=== PATIENT | female | born 1990 | race Caucasian/White ===

== ENCOUNTER → 2021-04-23 08:48 | Outpatient (CLI) | payer MEDICAID, SELFPAY ==
[2021-04-23 09:11] LABS: Basophils # 0.1 K/mm3 (0-0.2); Basophils % 1.2 % (0.1-2.0); Eosinophils # 0.2 K/mm3 (0.0-0.4); Eosinophils % 1.7 % (0.1-12.0); Hematocrit 40.8 % (37.0-47.0); Hemoglobin 14.2 g/dL (12.2-16.2); Lymphocytes # 2.8 K/mm3 (0.7-4.5); Lymphocytes % 28.5 % (10-50); Mean Corpuscular HGB Conc 34.9 g/dL (31.8-35.4); Mean Corpuscular Hemoglobin 29.3 pg (27.0-31.2); Mean Corpuscular Volume 83.8 fl (81-99); Mean Platelet Volume 7.7 fl (7.4-10.4); Monocytes # 0.5 K/mm3 (0.1-1.0); Monocytes % 4.8 % (1.7-9.3); Neutrophils # 6.2 K/mm3 (1.8-7.8); Neutrophils % 63.8 % (37.0-80.0); Platelet Count 368 K/mm3 (142-424); Red Blood Count 4.87 M/mm3 (4.20-5.40); Red Cell Distribution Width 13.4 % (11.5-17.5); White Blood Count 9.8 K/mm3 (4.8-10.8)
[2021-04-23 09:24] LABS: Hemoglobin A1C 5.6 % (4.0-6.0)
[2021-04-23 09:32] LABS: Alanine Aminotransferase 89 U/L (12-78); Albumin Level 4.5 g/dl (3.5-5.0); Albumin/Globulin Ratio 1.4 (1.1-1.8); Alkaline Phosphatase 98 U/L (38-126); Aspartate Amino Transferase 71 U/L (14-36); Bilirubin,Total 0.9 mg/dl (0.2-1.3); Blood Urea Nitrogen 13 mg/dl (7-17); Carbon Dioxide 25 mmol/L (22.0-30.0); Chloride 106 mmol/L (98-107); Cholesterol 176 mg/dl (140-200); Estimated Glomerular Filt Rate 116 ml/min (>60); GFR (African American) 140 ML/MIN (>60); Globulin 3.2 g/dL (1.3-3.2); Glucose 120 mg/dl (74-100); Total Protein,Serum 7.7 g/dl (6.3-8.2); Triglycerides 191 mg/dl (30-150); VLDL Cholesterol 38 mg/dL (0-40)
[2021-04-23 09:33] LABS: Anion Gap 12.3 mEq/L (5-15); Chol/HDL Ratio 4.4 (1-3.5); HDL Cholesterol 40 mg/dl (40-60); Potassium 4.3 mmoL/L (3.5-5.1); Sodium 139 mmol/L (136-145)
[2021-04-23 09:42] LABS: Direct LDL Cholesterol 101.95 mg/dL (100-129)
[2021-04-23 10:05] LABS: Thyroid Stimulating Hormone 1.91 uIU/mL (0.465-4.68)
[2021-04-23 11:00] LABS: Ferritin 82.3 ng/ml (6.24-137)
[2021-04-24 11:27] LABS: Hep A Ab, IgM Negative (Negative); Hepatitis B Core Antibody IgM Negative (Negative); Hepatitis B Surface Antigen Negative (Negative); Hepatitis C Antibody <0.1 s/co ratio (0.0-0.9)
== END ==
PROVIDERS: Visit Provider Nurse Practitioner Family
DX: I10 Essential (primary) hypertension (principal); R74.8 Abnormal levels of other serum enzymes
CPT/HCPCS: 36415; 80053; 80061; 80074; 82728; 83036; 84443; 85025

== ENCOUNTER → 2021-05-04 09:08 | Outpatient (CLI) | payer MEDICAID, SELFPAY ==
--- NOTE | 2021-05-04 09:15 | US_ITS ---
PROCEDURE: US LIVER CLINICAL INDICATION: ELEVATED LIVER ENZYMES COMPARISON: No exams were available for comparison FINDINGS: PANCREAS: Pancreas is not well delineated due to overlying bowel gas. CT or MRI without and with contrast with pancreatic protocol may provide further evaluation if clinically desired. LIVER: Diffuse increased echogenicity of the liver with poor through transmission of sound consistent with hepatic steatosis. No focal liver lesion demonstrated. There is appropriate direction of blood flow within non dilated portal vein. RIGHT KIDNEY: Unremarkable. Normal size and echogenicity. No hydronephrosis GALLBLADDER: Prior cholecystectomy. Common bile duct is normal at 3 mm. IMPRESSION: Fatty liver. Poor pancreas visualization Prior cholecystectomy Dictated by: Nixon Matthews MD 05/04/2021 11:51 Nixon Matthews MD in [place] 05/04/2021 11:51
== END ==
PROVIDERS: PCP Nurse Practitioner Family; Visit Provider Nurse Practitioner Family
DX: R74.8 Abnormal levels of other serum enzymes (principal)
CPT/HCPCS: 76705

== ENCOUNTER 2021-05-17 17:33 | Emergency (ER) | payer MEDICAID, SELFPAY ==
[2021-05-17 19:20] VITALS: BP 137/97; PULSE 97; RESP 18; TEMP 36.7; O2SAT 100; BMI 36.0
--- NOTE | 2021-05-17 20:01 | HMH.EDUTC ---
[facility] Disposition Clinical Impression: Encounter for laboratory testing for COVID-19 virus Disposition: Home, Self-Care Condition on Discharge: Good Instructions: DI for COVID-19 (Suspected or Confirmed ), Coronavirus Disease 2019, Preventing the Spread of Coronavirus Discharge Instructions Additional Instructions: *Monitor Temp, Over the counter Motrin or Tylenol as directed/as needed Tylenol every 4 hours and Motrin every 6 hours (as long as your family doctor has told you that you can take it) for fever or pain. and straight to ER if unable to lower temp less than 101.0 after medication given Follow up IMMEDIATELY for new or worsening symptoms or no Noticeable improvement over the next 48-72 hours. 911 for difficulty breathing or swallowing You were tested for today for COVID19 your test result should be back in the next 24-48 hours, you may call to the [facility] to see if your test results are back in the next 48 hours [phone] [facility] hours are 9am-9pm You was given a handout with instructions for Self Quarantine and Self isolation for while you wait on test results and what to do if they are positive If you are positive the Health Dept will be contacting you also Make sure to take your Vitamins Vit. C Vit D and Zinc if you can take them Referrals: Ani Wan APRN [Primary Care Provider] - As needed Time of Disposition: 20:03 Medical Decision Making - Sloan Inquiry Pt receiving controlled substance: No Sloan was queried for this patient: No Vital Signs: 05/17/21 19:20 Temperature 98.0 F Temperature Source Oral Pulse Rate [Right Brachial] 97 H Respiratory Rate 18 Blood Pressure [Right Arm] 137/97 H Blood Pressure Mean [Right Arm] 110 Blood Pressure Source [Right Arm] Automatic Cuff Blood Pressure Position [Right Arm] Sitting 02 Sat by Pulse Oximetry 100 Oxygen Delivery Method Room Air Orders (Tests/Meds): ORDERS Category Date Time Status Covid-19 Nasal PCR ([facility]) Routine Lab 05/17/21 19:16 Ordered [facility] HPI - General Stated complaint: covid test Time Seen by Provider: 05/17/21 20:01 Mode of Arrival: Ambulatory Source of Information: Patient Limitations: No Limitations Description of Symptoms (Recalled from Triage Doc. by RN): COVID TEST, DENIES EXPOSURE OR SYMPTOMS HEENT Symptoms (Recalled from RN notes): No Resp Symptoms (Recalled from RN notes): No Skin Symptoms (Recalled from RN notes): No MS Symptoms (Recalled from RN notes): No Functional Status (Recalled from RN notes): WNL - History of Present Illness Provider Complaint: Patient requesting COVID test Denies known exposure or any symptoms States that kids are back in school and she was worried they may catch COVID so she wanted to get tested - Related Data Home Medications Medication Instructions Recorded Confirmed lisinopriL [Lisinopril 10mg Tab] 10 mg PO DAILY 01/20/19 01/20/19 Previous Rx's Medication Instructions Recorded levoFLOXacin [Levaquin 500mg 500 mg PO DAILY #7 tab 01/20/19 tab] Allergies Allergy/AdvReac Type Severity Reaction Status Date / Time No Known Allergies Allergy Verified 01/20/19 19:13 - Worker's Comp Is this a Worker's Comp case?: No [facility] History - Hepatitis A Screen Drug use history?: No High risk sexual behaviors?: No History of sexually transmitted infection?: No Currently employed?: No Childcare worker?: No Do you have indoor plumbing?: Yes Do you have electricity?: Yes Attestation statement:: This patient has been screened for Hepatitis A risk factors. I have reviewed the patient's past medical history: Yes - Social History Alcohol Intake: never Occupational Status: employed ROS Obtained: Yes All systems reviewed & no additional complaints, Yes Systems reviewed as appropriate & no additional complaints - Constitutional Constitutional: Reports system reviewed and no additional complaints, except as docu, Denies body ache, Denies chills, Denies fever
[2021-05-17 20:04] VITALS: BP 137/97; PULSE 97; RESP 18; TEMP 36.7; O2SAT 100
== END 2021-05-17 20:16 | disposition home or self-care (01) ==
PROVIDERS: Emergency Provider Nurse Practitioner; PCP Nurse Practitioner Family
DX: Z20.822 Contact with and (suspected) exposure to COVID-19 (principal)
CPT/HCPCS: 99202; G0463; U0003

== ENCOUNTER → 2021-08-15 09:17 | Outpatient (CLI) | payer MEDICAID, SELFPAY ==
[2021-08-15 09:57] LABS: Basophils # 0.1 K/mm3 (0-0.2); Basophils % 1.2 % (0.1-2.0); Eosinophils # 0.2 K/mm3 (0.0-0.4); Eosinophils % 1.5 % (0.1-12.0); Hematocrit 43.6 % (37.0-47.0); Hemoglobin 15.2 g/dL (12.2-16.2); Lymphocytes # 3.1 K/mm3 (0.7-4.5); Lymphocytes % 32.4 % (10-50); Mean Corpuscular Hemoglobin 29.4 pg (27.0-31.2); Mean Platelet Volume 7.9 fl (7.4-10.4); Monocytes # 0.5 K/mm3 (0.1-1.0); Monocytes % 4.9 % (1.7-9.3); Neutrophils # 5.7 K/mm3 (1.8-7.8); Neutrophils % 59.9 % (37.0-80.0); Platelet Count 400 K/mm3 (142-424); Red Blood Count 5.19 M/mm3 (4.20-5.40); Red Cell Distribution Width 13.1 % (11.5-17.5); White Blood Count 9.5 K/mm3 (4.8-10.8)
[2021-08-15 10:13] LABS: INR 0.94 (0.9-1.1); Prothrombin Time 10.7 seconds (10.1-12.5)
[2021-08-15 10:40] LABS: Chloride 104 mmol/L (98-107); Potassium 4.1 mmoL/L (3.5-5.1); Sodium 138 mmol/L (136-145)
[2021-08-15 10:42] LABS: Alanine Aminotransferase 82 U/L (12-78); Aspartate Amino Transferase 90 U/L (14-36); Blood Urea Nitrogen 10 mg/dl (7-17); Estimated Glomerular Filt Rate 116 ml/min (>60); GFR (African American) 140 ML/MIN (>60)
[2021-08-15 10:43] LABS: Albumin Level 4.5 g/dl (3.5-5.0); Albumin/Globulin Ratio 1.4 (1.1-1.8); Alkaline Phosphatase 117 U/L (38-126); Anion Gap 12.1 mEq/L (5-15); Bilirubin,Total 1.4 mg/dl (0.2-1.3); Calcium 9.5 mg/dl (8.4-10.2); Carbon Dioxide 26 mmol/L (22.0-30.0); Globulin 3.3 g/dL (1.3-3.2); Glucose 137 mg/dl (74-100); Iron 98 ug/dL (37-170); Total Protein,Serum 7.8 g/dl (6.3-8.2)
[2021-08-15 10:53] LABS: Total Iron Binding Capacity 427 ug/dL (265-497)
[2021-08-15 11:18] LABS: Ferritin 97.1 ng/ml (6.24-137)
[2021-08-16 10:12] LABS: Ceruloplasmin 30.5 mg/dL (19.0-39.0); Immunoglobulin A, Qn 638 mg/dL (87-352); Immunoglobulin G, Qn 1114 mg/dL (586-1602); Immunoglobulin M, Qn 124 mg/dL (26-217)
[2021-08-16 13:32] LABS: Angiotensin Converting Enzyme <15 U/L (14-82)
[2021-08-16 14:38] LABS: Actin (Smooth Muscle) Antibody 29 Units (0-19); Liver-Kidney Microsomal Ab 1.3 Units (0.0-20.0); Mitochondrial (M2) Antibody <20.0 Units (0.0-20.0)
[2021-08-16 15:27] LABS: Deamidated Gliadin Abs, IgA 9 units (0-19); Deamidated Gliadin Abs, IgG 2 units (0-19); Tissue Transglutaminase IgA Ab <2 U/mL (0-3); Tissue Transglutaminase IgG Ab <2 U/mL (0-5)
[2021-08-16 16:16] LABS: Endomysial IgA Antibody Negative (Negative)
[2021-08-17 06:11] LABS: Reticulin IgA Antibody Negative titer (Neg:<1:2.5)
[2021-08-17 17:22] LABS: Antinuclear Antibodies, IFA Positive (.)
[2021-08-18 02:16] LABS: ALT (SGPT) P5P 90 IU/L (0-40); AST (SGOT) P5P 88 IU/L (0-40); Alpha 2-Macroglobulins, Qn 268 mg/dL (110-276); Apolipoprotein A-1 131 mg/dL (116-209); Bilirubin, Total 1.1 mg/dL (0.0-1.2); Cholesterol, Total 189 mg/dL (100-199); Fibrosis Score 0.47 (0.00-0.21); Fibrosis Stage F1-F2 (.); GGT 166 IU/L (0-60); Glucose 136 mg/dL (65-99); Haptoglobin 175 mg/dL (33-278); NASH Score 0.75 (0.25); Steatosis Score 0.85 (0.00-0.30); Triglycerides 216 mg/dL (0-149)
[2021-08-18 13:11] LABS: Alpha-1-Antitrypsin 159 mg/dL (100-188)
== END ==
PROVIDERS: Visit Provider Nurse Practitioner Family
DX: K76.0 Fatty (change of) liver, not elsewhere classified (principal); R94.5 Abnormal results of liver function studies; R19.7 Diarrhea, unspecified; R15.2 Fecal urgency; R14.3 Flatulence
CPT/HCPCS: 36415; 80053; 81256; 82103; 82104; 82164; 82390; 82728; 82784; 83516; 83540; 83550; 85025; 85610; 86038; 86255; 86256; 86376

== ENCOUNTER 2022-08-04 10:19 | Emergency (ER) | payer MEDICAID, SELFPAY ==
[2022-08-04 10:40] VITALS: BP 149/87; PULSE 111; RESP 17; TEMP 37.1; O2SAT 98; BMI 32.8
--- NOTE | 2022-08-04 11:06 | EXP.UTC ---
Discharge Plan Disposition Patient Disposition: Home, Self-Care Condition: Good Prescriptions Prescriptions: New prednisone [prednisone] 20 mg tablet 20 mg PO BID 5 Days Qty: 10 0RF doxycycline monohydrate 100 mg tablet 100 mg PO BID 10 Days Qty: 20 0RF albuterol sulfate [Ventolin HFA] 90 mcg/actuation HFA aerosol inhaler 2 puff inhalation QIDP PRN (Reason: Wheezing) 30 Days Qty: 1 0RF promethazine-DM 6.25-15 mg/5 mL Syrup 5 ml PO Q6H PRN (Reason: Cough) Qty: 120 0RF No Action lisinopril 10 MG tablet 10 mg PO DAILY levofloxacin 500 MG tablet 500 mg PO DAILY Qty: 7 0RF Referrals Follow up/Referrals: Ani Wan APRN [Primary Care Provider] - See instructions Clinical Impressions Clinical Impression: Bronchitis Instructions Patient Instructions: DI for Acute Bronchitis Discharge ED Provider: Kay Velasquez [facility] [place] General Stated complaint: Cough, LT ear pain, Chest congestion Mode of Arrival: Ambulatory Source of Information: Patient Limitations: No Limitations Time Seen by Provider: 08/04/22 11:07 Description of Symptoms (Recalled from Triage Doc. by RN): pt comes in with c/o left ear pain, cough, pain with coughing. symptoms began sunday HEENT Symptoms (Recalled from RN notes): Yes Resp Symptoms (Recalled from RN notes): Yes Skin Symptoms (Recalled from RN notes): No MS Symptoms (Recalled from RN notes): No Functional Status (Recalled from RN notes): n/a History of Present Illness Provider Complaint: 4 day history left ear pain, cough, sore throat. OTC meds haven't helped. Chest soreness with coughing. Cough non productive. Can't catch her breath. Onset (ago): day(s) (4) Relieving factors: none Exacerbating factors: none Associated symptoms: denies other symptoms Treatments prior to arrival: none Related Data Home Medications Medication Instructions Recorded Confirmed lisinopril 10 mg tablet 10 mg PO DAILY Hypertension 01/20/19 01/20/19 Previous Rx's Medication Instructions Recorded levofloxacin 500 mg tablet 500 mg PO DAILY #7 tabs 01/20/19 albuterol sulfate 90 mcg/actuation 2 puff inhalation QIDP PRN 08/04/22 aerosol inhaler (Ventolin HFA) Wheezing 30 days #1 ea doxycycline monohydrate 100 mg 100 mg PO BID 10 days #20 tabs 08/04/22 tablet prednisone 20 mg tablet 20 mg PO BID 5 days #10 tabs 08/04/22 promethazine-DM 6.25 mg-15 mg/5 mL 5 ml PO Q6H PRN Cough #120 mL 08/04/22 oral syrup Allergies Allergy/AdvReac Type Severity Reaction Status Date / Time No Known Allergies Allergy Verified 08/04/22 10:42 Worker's Comp Is this a Worker's Comp case?: No PFSH PFSH Social History Smoking Status: Never smoker alcohol intake: never current occupational status: employed Travel in the last 8 weeks: None ROS Obtained: Yes All systems reviewed & no additional complaints except as documented Constitutional Constitutional: Reports body ache, Reports chills and Denies fever(s) ENT Ears, Nose, Mouth, and Throat: Reports sore throat Respiratory Respiratory: Reports chest congestion, Reports cough and Reports pain with cough Physical Exam General General appearance: alert and in no apparent distress Head Head exam: atraumatic, normocephalic and normal inspection Eye Eye exam: Present normal appearance, PERRL and EOMI ENT ENT exam: Present normal exam, normal oropharynx, mucous membranes moist, TM's normal bilaterally and normal external ear exam Neck Neck exam: Present normal inspection, full ROM and trachea midline; Absent meningismus or lymphadenopathy Chest Chest inspection: Present normal inspection and symmetric chest wall rise; Absent tenderness Respiratory Respiratory exam: Present wheezes; Absent respiratory distress Cardiovascular Cardiovascular exam: Present regular rate and normal rhythm; Absent JVD Abdominal Exam Abdominal exam: Present soft and normal bowel sounds; Absent distention, tenderness or guarding E
[2022-08-04 11:29] VITALS: BP 149/87; PULSE 111; RESP 17; TEMP 37.1
== END 2022-08-04 11:30 | disposition home or self-care (01) ==
PROVIDERS: Emergency Provider Physician Assistant; PCP Nurse Practitioner Family
DX: J40 Bronchitis, not specified as acute or chronic (principal)
CPT/HCPCS: 99212; G0463

== ENCOUNTER → 2023-02-22 10:50 | Outpatient (CLI) | payer MEDICAID, SELFPAY ==
[2023-02-22 11:12] LABS: Basophils # 0.1 K/mm3 (0-0.2); Basophils % 0.8 % (0.1-2.0); Eosinophils # 0.2 K/mm3 (0.0-0.4); Eosinophils % 1.6 % (0.1-12.0); Hematocrit 42.6 % (37.0-47.0); Hemoglobin 14.4 g/dL (12.2-16.2); Lymphocytes # 3.3 K/mm3 (0.7-4.5); Lymphocytes % 33.6 % (10-50); Mean Corpuscular HGB Conc 33.7 g/dL (31.8-35.4); Mean Corpuscular Hemoglobin 29.4 pg (27.0-31.2); Mean Corpuscular Volume 87.4 fl (81-99); Mean Platelet Volume 7.6 fl (7.4-10.4); Monocytes # 0.5 K/mm3 (0.1-1.0); Monocytes % 4.6 % (1.7-9.3); Neutrophils # 5.8 K/mm3 (1.8-7.8); Neutrophils % 59.4 % (37.0-80.0); Platelet Count 348 K/mm3 (142-424); Red Blood Count 4.88 M/mm3 (4.20-5.40); White Blood Count 9.7 K/mm3 (4.8-10.8)
[2023-02-22 11:27] LABS: Chloride 98 mmol/L (98-107); Potassium 3.8 mmoL/L (3.5-5.1); Sodium 139 mmol/L (136-145)
[2023-02-22 11:30] LABS: Alanine Aminotransferase 88 U/L (12-78); Albumin Level 4.3 g/dl (3.5-5.0); Albumin/Globulin Ratio 1.3 (1.1-1.8); Alkaline Phosphatase 116 U/L (38-126); Anion Gap 14.8 mEq/L (5-15); Aspartate Amino Transferase 103 U/L (14-36); Bilirubin,Total 1.5 mg/dl (0.2-1.3); Blood Urea Nitrogen 13 mg/dl (7-17); Calcium 9.5 mg/dl (8.4-10.2); Carbon Dioxide 30 mmol/L (22.0-30.0); Estimated Glomerular Filt Rate 114 ml/min (>60); GFR (African American) 138 ML/MIN (>60); Globulin 3.2 g/dL (1.3-3.2); Glucose 127 mg/dl (74-100); Total Protein,Serum 7.5 g/dl (6.3-8.2)
[2023-02-22 11:50] LABS: INR 0.95 (0.9-1.1); Prothrombin Time 10.3 seconds (10.1-12.5)
== END ==
PROVIDERS: PCP Nurse Practitioner Family; Visit Provider Physician Assistant
DX: K75.81 Nonalcoholic steatohepatitis (NASH) (principal)
CPT/HCPCS: 36415; 80053; 85025; 85610

== ENCOUNTER → 2023-03-01 07:41 | Outpatient (CLI) | payer MEDICAID, SELFPAY ==
--- NOTE | 2023-03-01 07:47 | US_ITS ---
FINAL REPORT CLINICAL HISTORY: NONALCOHOLIC STEATOHEPATITIS FINDINGS: RIGHT UPPER QUADRANT ULTRASOUND Sonographic images of the right upper quadrant were obtained. Exam is limited secondary to body habitus. The pancreas is partially obscured. There is fatty infiltration of the liver. The gallbladder is absent. The common duct measures 5 mm. Limited images of the right kidney are normal. IMPRESSION: Fatty liver. Absent gallbladder. Reviewed, Interpreted and Dictated by Donnie Lauren MD Transcribed by Candice Barreto Authenticated and [facility]
== END ==
PROVIDERS: PCP Nurse Practitioner Family; Visit Provider Physician Assistant
DX: K75.81 Nonalcoholic steatohepatitis (NASH) (principal)
CPT/HCPCS: 76705

== ENCOUNTER 2025-04-08 07:45 | Outpatient (CLI) | payer MEDICAID, SELFPAY ==
--- OUTSIDE RECORDS SUMMARY | 2025-03-04 22:33 | XMS_ITS | Continuity of Care Document ---
Author Organization [facility] Phone Care Team Providers Care Instructor Dancing Name Role Phone SEAN TEJEDA Primary Care CASE, SELENA Rodriguez Unavailable CASE, SELENA Rodriguez Admitting CASE, SELENA Rodriguez Surgeon CASE, SELENA Rodriguez Primary Attending ALLERGIES AND ADVERSE REACTIONS ALLERGIES AND ADVERSE REACTIONS Code System Allergy Substance Adverse Reaction Date Reaction (Severity) Comment Status Reported By Updated By No Known Allergies [id number] on December 27, 2023 12:47:30 PM [place] FAMILY HISTORY RELATION: Father Status: Cause of : Liver cell carcinoma Age at : Unknown SNOMED-CT Diagnosis Age At Onset Information not available RELATION: Mother Status: Cause of : Myocardial infarction Age at : Unknown SNOMED-CT Diagnosis Age At Onset Information not available RESULTS Patient: FILIBERTO Gomez Date of : December 04 3 LABORATORY RESULTS ORDER 300: URINE T EST (LOINC: 2105-11) ORDER DATE: March 02, 2025 7:24:00 PM UTC Specimen Source: URINE Specimen Type: Urine specime n PERFORMING LAB: [address] [id number] Result Comment: Final Result Date: March 02, 2025 7:41:00 PM UTC (TECH: JNJ) LOINC TEST FLAG RESULT REFERENCE RANGE UPDA ROBYN BY 2105-11 Choriogonadotropin ( test) [Presence] in Urine N NEGATIVE NEGATIVE March 7:41:00 PM UTC (TECH: JNJ) 13894-2 Reagent Lot number [id number] J 2024 7:41:00 PM UTC (TECH: JNJ) 51841-1 Choriogonadotropin [Units/volume] in Serum or Plasma N 11-20-25 March 02, 2025 7:41:00 PM UTC (TECH: JNJ) 98502-0 Internal control result N OK POSITI VE March 02, 2025 7:41:00 PM UTC (TECH: LISAJ) LABORATORY NARRATIVE RESULTS Information is not available RADIOLOGY RESULTS Information is not available PATHOLOGY NARRATIVE RESULTS ORDER 400: PATHOLOGY SPECIME N (INC: 70977-6) ORDER DATE: March 02, 2025 7:52:00 PM UTC Specimen Source: PATH Specimen Type: Refer to path ology laboratory PERFORMING LAB: [address] [id number] Final Result Date: March 04 6:18:00 PM UTC TEST: PATHOLOGY SPECIMEN MICROBIOLOGY RESULTS No Micro Labs/Results Exist for Patient BLOOD ADMIN RESULTS Information is not available MEDICATIONS HOME MEDICATIONS Status RXNORM [facility] Medication Dose Route Frequency Dates Comments Reported By Updated By Active 184677 72049 90655 4 albuterol (VENTOLIN) HFA 108 (90 BASE) MCG/ACT 2.0 PUF INHALA TION [id number] Last Dose: [id number] on February 16, 2025 12:23:11 PM [place] Active 758546 60313 40259 1 Benazepril-h ydroCHLOROth iazide Oral Tablet 20-12.5 MG 1.0 TAB ORAL DAILY Last Dose: February 23, 2025 1:00:0 0 PM UTC [id number] on March 02, 2025 7:20:41 PM UTC Active 331045 53260 67706 8 cholestyrami ne (QUESTRAN) 4.0 GM ORAL BID Last Dose: February 23, 2025 1:00:0 0 PM UTC [id number] on March 02, 2025 7:21:30 PM UTC Active 7945403 88549 48790 6 colestipol (COLESTID) 2.0 GM ORAL BID Last Dose: February 23, 2025 1:00:0 0 PM UTC [id number] on March 02, 2025 7:21:48 PM UTC Active 019227 17231 44964 0 Dicyclomine HCl Oral Tablet 20 MG 20.0 MG ORAL DAILY Last Dose: February 23, 2025 1:00:0 0 PM UTC [id number] on March 02, 2025 7:22:03 PM [facility] Active 647190 78475 61455 1 Escitalopram Oxalate Oral Tablet 20 MG 20.0 MG ORAL DAILY Last Dose: February 23, 2025 1:00:0 0 PM [facility] [id number] on March 02, 2025 7:22:16 PM [facility] Active 281481 51515 31533 1 hydrOXYzine (ATARAX) 25.0 MG ORAL TIDPRN Last Dose: February 23, 2025 1:00:0 0 PM [facility] [id number] on March 02, 2025 7:22:27 PM [facility] Active 206374 63423 58351 0 Levocetirizi ne Dihydrochlor radha Oral Tablet 5 MG 1.0 TAB ORAL DAILY Last Dose: February 23, 2025 1:00:0 0 PM [facility] [id number] on March 02, 2025 7:22:40 PM [facility] Active 714470 63934 34331 0 Omeprazole Oral Capsule Delayed Release 40 MG 40.0 MG ORAL BID Last Dose: February 23, 2025 1:00:0 0 PM [facility] [id number] on March 02, 2025 7:22:52 PM [facility] Active 375569 15807 17115 0 buPROPion HCl ER (XL) Oral Tablet Extended Release 24 Hour 300 MG 1.0 TAB ORAL DAILY Last Dose: February 23, 2025 1:00:0 0 PM [facility] [id number] on March 02, 2025 7:27:07 PM [facility] DISCHARGE MEDICATIONS Status RXNORM [facility] Medication Dose Route Frequency Dates Comments Physician Updated By No Discharge Medication Info rmation Available [facility]PATIENT MEDICATIONS [facility] Medication Dose Route Frequency Rat e Quantity Dates Comments Physician Updated By Trem[place]ne inued [id number] 2167 8011 704 LACTATED RINGERS SOLN 1000. 0 ML INTRAV ENOUS ONE TIME ADMINISTRA TION (UNSCHEDUL ED) 25.0 ML/HR Start: February 16, 2025 12:38: 00 PM [facility] End: March 03, 2025 2:16:0 0 AM [facility] KAELA Gomez [id number] on March 03, 2025 4:25:00 AM [facility] T[place]ne inued [id number] 5963 8004 904 sodium chloride 0.9% SOLN 1000. 0 ML INTRAV ENOUS ONE TIME ADMINISTRA TION (UNSCHEDUL ED) 25.0 ML/HR Start: February 16, 2025 12:38: 00 PM UTC End: March 03, 2025 2:16:0 0 AM UTC KAELA Gomez [id number] on March 03, 2025 4:25:00 AM UTC Discont inued 101762 9548 8011 704 LACTATED RINGERS SOLN 1000. 0 ML IV CONTIN UOUS ONE TIME ONLY (SCHEDULED DOSE) Start: March 02, 2025 12:55: 00 PM UTC End: March 02, 2025 12:55: 00 PM UT CASE SELENA Rodriguez INTERFAC ED on March 02, 2025 4:00:00 AM UT Discont inued 1398428 9110 5034 542 PROPOFOL 500 MG/50ML EMUL 500.0 MG INTRAV ENOUS ONE TIME ONLY (SCHEDULED DOSE) 20.833 MG/HR Start: March 02, 2025 2:30:0 0 PM UTC End: March 03, 2025 2:16:0 0 AM [place] CASE SELENA Rodriguez [id number] on March 03, 2025 2:35:00 PM UTC Discont inued 4759781 9751 3020 202 LIDOCAINE HCL 2 % SOLN 2.0 ML ONE TIME ONLY (SCHEDULED DOSE) 0.083 ML/HR Start: March 02, 2025 2:30:0 0 PM UTC End: March 03, 2025 2:16:0 0 AM UTC CASE SELENA Rodriguez [id number] on March 03, 2025 2:35:00 PM UT SOCIAL HISTORY SOCIAL HISTORY SNOMED-CT Social History Element Description Effective Dates Offered Cessation Comment UpdatedBy [id number] Current Tobacco smoking status Former Smoker [id number] on February 16, 2025 12:24:24 PM UT SOCIAL HISTORY - Gender Sex: Female SOCIAL HISTORY - Status : status i nformation is not available Intention in Next Year: intention information is not available SOCIAL HISTORY - Sexual Behavior Sexual Orientation Gender Identity SNOMED-CT Description SNO MED -CT Description Activity Level No of Partners Partner Type UpdatedBy Information is not available VITAL SIGNS PATIENT VITAL SIGNS This section displays the mo st recent value for each vital sign as of March 05, 2025 2:33:38 AM [place] Loinc Code Vital Sign Activity Date Result Updated By 8302-2 Body height March 02, 2025 7:23:13 PM UT 170.18 cm (67.0 in) [id number] on March 02, 2025 7:23:13 PM [facility] 55788-8 Body mass index (BMI) [Ratio] March 02, 2025 7:23:13 PM UT 34.042 kg/m2 [id number] on March 02, 2025 7:23:13 PM UT 3140-1 Body Surface Area Derived From Formula March 02, 2025 7:23:13 PM UT 2.0949 m2 [id number] on March 02, 2025 7:23:13 PM [facility] 40855-0 Body weight Measured March 02 7:23:13 PM UT 98.6 kg (217.0 lb) [id number] on March 02, 2025 7:23:13 PM [facility] PEDIATRIC GROWTH CHART - VITAL SIGNS This section displays Head C ircumference Percentile, Weight for Length Percentile and BMI Percentile Loinc Code Pediatric Measure Age (Months) Result Updat ed By No Pediatric Growth Chart Pe rcentile Information Available. PROCEDURES PATIENT PROCEDURES CODE SYSTEM DESCRIPTION STATUS PERFORMED DATE UPD ATED BY [id number] SNOMED-CT Esophagogastroduodenoscopy completed March 02, 2025 4:00:00 AM [facility] [id number] on March 02, 2025 7:48:36 PM [facility] PROCEDURE NOTE Procedure Note information i s not available. HEALTH CONCERNS Problems Concern Status Health Concern problem infor mation not available. Smoking Status Status Years Used Consumed packs p er day Health Concern smoking histo ry information not available. Family History Concern Status Health Concern family histor y information not available. ENCOUNTERS ENCOUNTER INFORMATION Reason for Visit EGD WITH DAS Admission March 02, 2025 6:16:[address] [id number] Discharge March 03, 2025 2:16:00 AM [facility] DISC HARGED TO HOME OR SELF CARE ENCOUNTER DIAGNOSES Notes information is not shamir ilable. Code System Diagnosis Onset Date Diagnosis information is not available. ABSTRACT DIAGNOSES Code System Diagnosis Updated By R12 ICD10 HEART[place]URN [id number] on March 04, 2025 12:46:56 PM UT K20.80 ICD10 OTHER ESOPHAGITIS WITHOUT BL EEDING [id number] on March 04, 2025 12:46:56 PM [facility] I10 ICD10 ESSENTIAL (PRIMARY) HYPERTEN JOHNSON [id number] on March 04, 2025 12:46:56 PM UT J45.909 ICD10 UNSPECIFIED ASTHMA, UNCOMPLI CATED [id number] on March 04, 2025 12:46:56 PM UTC K21.9 ICD10 GASTRO-ESOPHAGEA L REFLUX DISEASE WITHOUT ESOPHAGITIS [id number] on March 04, 2025 12:46:56 PM UTC K50.90 ICD10 CROHN'S DISEASE, UNSPECIFIED, WITHOUT COMPLICATIONS [id number] on March 04, 2025 12:46:56 PM UTC F32.A ICD10 DEPRESSION, UNSPECIFIED [id number] on March 04, 2025 12:46:56 PM UT Z90.49 ICD10 ACQUIRED ABSENCE OF OTHER SPECIFIED PARTS OF DIGESTIVE TRACT [id number] on March 04, 2025 12:46:56 PM UT Z79.899 ICD10 OTHER RESIDENTIAL (CURRENT) DR GRICEL THERAPY [id number] on March 04, 2025 12:46:56 PM [facility] CARE TEAM Care Instructor Dancing Role SEAN TEJEDA Primary Care SELENA SUH Referring SELENA CASE Admitting SELENA CASE Surgeon SELENA CASE Primary Attending CARE TEAM CARE outside sales inspector Role on Team Status Start Date End Date Update d By CASE SELENA Rodriguez SWEETIE Surgeon normal March 02 6:16:00 PM [facility] March 03, 2025 2:16:00 AM [facility] [id number] on March 04, 2025 12:47:03 PM [facility] CASE SELENA PITT Referring normal March 02 6:18:51 PM [facility] March 03, 2025 2:16:00 AM [facility] [id number] on March 04, 2025 12:47:03 PM [facility] normal February 09, 2025 12:00:47 PM [facility] March 03, 2025 2:16:00 AM UT [id number] on March 04, 2025 12:47:03 PM [facility] CASE SELENA Rodriguez SWEETIE Attending normal February 09 12:00:47 PM [facility] March 03, 2025 2:16:00 AM [facility] [id number] on March 04, 2025 12:47:03 PM [facility] CASE SELENA PITT Admitting normal February 09 12:00:47 PM [facility] March 03, 2025 2:16:00 AM [facility] [id number] on March 04, 2025 12:47:03 PM [facility]
--- NOTE | 2025-04-08 | FL_ITS ---
FINAL REPORT CLINICAL HISTORY: GERD W/ ESOPHAGITIS W/O HEMMORRHAGE 0.29 min DAP 557.61 FINDINGS: ESOPHAGRAM HISTORY: Abdominal pain, nausea. PROCEDURE: The patient ingested barium. Effervescent crystals were also administered. Spot and overhead films were obtained. FINDINGS: The esophagus is normal. There is a small sliding type hiatal hernia. There is mild gastroesophageal reflux. Peristalsis is normal. IMPRESSION: Small sliding-type hiatal hernia and mild gastroesophageal reflux. Fluoroscopy time: 29 seconds Fluoro dose: 557.61 DAP in uGym2 Reviewed, Interpreted and Dictated by Donnie Lauren MD Transcribed by RUTHY Kenny Authenticated and [facility]
--- OUTSIDE RECORDS SUMMARY | 2025-04-08 07:48 | XMS_ITS | Data Portability ---
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 Lang. She also has a history of mild heartburn and frequent post-prandial diarrhea. 1) FIGUEROA: LFTs have improved with weight loss over the past year. Most recently with mildly elevated ALT at 44, normal AST. I have counseled continued weight loss efforts with regular diet and exercise. -Repeat labs at follow-up. -Avoid NSAIDs and alcohol. -Do not take over 2 g of acetaminophen daily. 2) Heartburn: Continue Famotidine as needed 3) Chronic diarrhea: Not improved with colestipol, dicyclomine, or Xifaxan previously. -Will obtain EGD and colonoscopy for further evaluation. -Stool studies previously ordered, but not performed by the patient -Will have her trial cholestyramine for a period and monitor her symptoms. 4) Prophylaxis: Final dose of the hepatitis A vaccine was administered in the office today. 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 Lang. She also has a history of mild heartburn and frequent post-prandial diarrhea. 1) FIGUEROA: LFTs have improved with weight loss over the past year. Most recently with mildly elevated ALT at 44, normal AST. I have counseled continued weight loss efforts with regular diet and exercise. -Repeat labs today for continued monitoring. -Avoid NSAIDs and alcohol. -Do not take over 2 g of acetaminophen daily. 2) Heartburn: Recent EGD with finding of grade B reflux esophagitis. She was started on Omeprazole 40 mg p.o. BID x8 weeks. She will resume use of famotidine PRN after that course is complete. I have recommended she contact the office after stopping PPI if she has recurrence of symptoms. 3) Chronic diarrhea: Previously not improved on cholesyramine, colestipol, dicyclomine, or Xifaxan previously. Colonoscopy schowed some cobblestoning in the colon, but with normal terminal ileal biopsy and random colon biopsies. Stool studies previously ordered, but not performed by the patient -With recent improvements, will continue to monitor for now. 4) Prophylaxis: She previously completed the hepatitis Vaccination series here in our office. Labs indicate immunity to hepatitis B. 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 Lang. She also has chronic refractory GERD and frequent post-prandial diarrhea. 1) FIGUEROA: LFTs previously improved with weight loss. She has gained 18 lbs since her last OV last year. Recommend regular diet and exercise for weight loss. -Repeat labs today for continued monitoring, risk stratification. -Limit alcohol 2) GERD: EGD last year with finding of grade B reflux esophagitis. She was started on Omeprazole 40 mg p.o. BID and famotidine PRN. She has intermittent breakthrough heartburn despite these. -Stop Omeprazole. Start Voquezna 10 mg p.o. daily. She may continue famotidine PRN. 3) Chronic diarrhea: Previously not improved on cholesyramine, colestipol, dicyclomine, or Xifaxan previously. Colonoscopy showed some cobblestoning in the colon, but with normal terminal ileal biopsy and random colon biopsies. Stool studies previously ordered, but not performed by the patient -Repeat stool study ordered today by Stool IDX swab: H. pylori stool Ag, Fecal calprotectin, fecal fat, O & P, Stool PCR. -Start loperamide 1-2 tablets daily in the morning. She may take an additional tablet as the day progressive if needed. She was instructed to observe for constipation. 4) Prophylaxis: She previously completed the hepatitis Vaccination series here in our office. Labs indicated immunity to hepatitis B. 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 Lang. She also has chronic refractory GERD and frequent post-prandial diarrhea. 1) Refractory GERD with overt regurgitation/Lik cindy LPR: Primary complaint: Jl has been approved, she will contact the mail order pharmacy to arrange delivery. EGD last year showed grade B reflux esophagitis. -She can continue Pepcid as needed for breakthrough symptoms. -We discussed recommendation for EGD with Alexandra and she would like to proceed. She may be a good candidate for anti-reflux surgery. 2) MASH: LFTs have fluctuated down with prior weight loss, and more recently have worsened with weight gain. ELF test is moderate risk. -I have again counseled regular diet and vigorous physical activity. Recommend at least 150 minutes of exercise per week. -Limit alcohol 3) Chronic diarrhea: Previously not improved on cholestyramine, colestipol, dicyclomine, or Xifaxan previously. Colonoscopy showed some cobblestoning in the colon, but with normal terminal ileal biopsy and random colon biopsies. Stool studies were unremarkabel and included H. pylori stool Ag, Fecal calprotectin, fecal fat, O & P, Stool PCR, and fecal elastase. -Continue loperamide as needed. She will continue to observe for constipation. 4) Prophylaxis: She previously completed the hepatitis Vaccination series here in our office. Labs indicated immunity to hepatitis B. f/u after EGD with Alexandra. Consider pursuing anti-reflux procedures if indicated. 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 Lang. She also has chronic refractory GERD/LPR and frequent post-prandial diarrhea. 1) Refractory GERD with overt regurgitation/Lik cindy LPR: Primary complaint: Jl has been approved, but she has been unable to obtain it from the specialty pharmacy. Rx was sent to her regular pharmacy. Additional samples provided in the office today. EGD last year showed grade B reflux esophagitis. This was repeated recently and again showed grade B reflux esophagitis. Alexandra study showed an elevated DeMeester score with increased acid exposure time and longest reflux. -She appears go be a good candidate for anti-reflux surgery and she is interested in proceeding with this. We will obtain a barium esophagram. No hiatal hernia was appreciated on EGD. Will refer to general surgery to discuss possible partial fundoplication. 2) MASH: LFTs have fluctuated down with prior weight loss, and more recently have worsened with weight gain. ELF test was recently moderate risk. She has had a 14 lb unintentional weight loss related to her upper GI symptoms. -I have again counseled regular diet and vigorous physical activity. Recommend at least 150 minutes of exercise per week. -Limit alcohol -Will plan for repeat lab monitoring in 3 months. 3) Chronic diarrhea: Previously not improved on cholestyramine, colestipol, dicyclomine, or Xifaxan previously. Colonoscopy showed some cobblestoning in the colon, but with normal terminal ileal biopsy and random colon biopsies. Stool studies were unremarkable and included H. pylori stool Ag, Fecal calprotectin, fecal fat, O & P, Stool PCR, and fecal elastase. -Stable on loperamide as needed currently. 4) Prophylaxis: She previously completed the hepatitis A vaccination series here in our office. Labs indicated immunity to hepatitis B. f/u 3 months [email or web address] Not available 04/01/2025 17:01:11 Plan of Treatment Reminders Order Date Submit Date Provider Last Modified By Organization Details Last Modified Time Details Appointments Establish ed Visit 15 min 2024 10:45A M Buck Rivera PA-C Not available Not available Not available Lab inflammat ion panel, serum or plasma 2024 025 [email or web address], [address], [address], [place], [address], 01/21/2025 14:10:57 inflammat ory bowel disease Ab panel, serum 2024 025 [email or web address] [facility], [address], [address], [place], [address], 01/21/2025 14:10:57 CMP, serum or plasma 2024 025 [email or web address] [facility], [address], [address], [place], [address], 01/21/2025 14:10:57 CBC 2024 025 [email or web address] [facility], [address], [address], [place], [address], 01/21/2025 14:10:57 PT/INR 2024 025 [email or web address] [facility], [address], [address], [place], [address], 01/21/2025 14:10:57 liver fibrosis score, calculate d by ELF, serum or plasma 2024 025 [email or web address] [facility], [address], [address], [place], [address], 01/21/2025 14:10:57 CMP, serum or plasma 2023 024 [facility], [address], [address], [place], [address], 01/22/2024 16:12:39 CBC 2023 024 [facility], [address], [address], [place], [address], 01/22/2024 16:12:40 PT/INR 2023 024 [facility], [address], [address], [place], [address], 01/22/2024 16:12:41 Referral general surgeon referral - Evaluatio n for possible partial fundoplic ation. No hiatal hernia was seen on EGD. See Buck's note from 04/01/25. 2024 025 ATHKYLE Gorman MD, [address], [address], [place], [address], 04/01/2025 17:00:36 Procedures None recorded. Surgeries None recorded. Imaging RF, esophagra m 2024 025 [facility] ([facility]), [address], [place], [address], 04/08/2025 04:13:45 Medication Orders Voquezna 20 mg tablet 2024 025 [email or web address] [facility], [facility] [address], [place], [id number], 04/01/2025 16:52:55 famotidin e 20 mg tablet 2024 025 [facility], [facility] [address], [place], [id number], 02/18/2025 11:08:01 loperamid e 2 mg tablet 2024 025 [facility], [address] [place] [address] [address], [place], [id number], 01/15/2025 14:23:39 Voquezna 10 mg tablet 2024 025 [facility] [address], [place], [address], 01/14/2025 10:00:58 famotidin e 20 mg tablet 2023 024 [facility], [facility] [address], [place], [id number], 01/21/2024 12:21:13 cholestyr amine (with sugar) 4 gram oral powder 2023 024 [email or web address] [facility], [address] [address] [place], [id number], 12/14/2023 14:32:09 Patient TargetsNo targets recorded. Patient InstructionsNo instructions recorded. Reason for Referral General Surgeon Referral for Gastro-esophageal reflux disease with esophagitis Evaluation for possible partial fundoplication. No hiatal hernia was seen on EGD. See Buck's note from 04/01/25. Referring Physician: Buck Rivera, Gastroenterology, Encounter Date: 04/01/2025 Results Created Date Observation Date Name Description Value Unit Range Abnormal Flag Note LastModifiedBy Organization Detail LastModifiedTime 01/21/20 24 01/22/2024 COMP. METAB OLIC PANEL (14) glucose 122 mg/dL 70-99 above high normal Not Available [facility] ([facility]) [address] [place], [address], 01/22/2024 16:12:39 01/21/20 24 01/22/2024 COMP. METAB OLIC PANEL (14) BUN 7 mg/dL 6-20 Not Available [facility] ([facility]) [address] [place], [address], 01/22/2024 16:12:39 01/21/20 24 01/22/2024 COMP. METAB OLIC PANEL (14) creatinine 0.64 mg/dL 0.57-1 .00 Not Available [facility] ([facility]) [address] [place], [address], 01/22/2024 16:12:39 01/21/20 24 01/22/2024 COMP. METAB OLIC PANEL (14) eGFR 118 mL/mi n/1.7 3 >59 Not Available [facility] ([facility]) [address] [place], [address], 01/22/2024 16:12:39 01/21/20 24 01/22/2024 COMP. METAB OLIC PANEL (14) BUN/creatini ne ratio 11 9-23 Not Available [facility] ([facility]) [address] [facility], [place], [address], 01/22/2024 16:12:39 01/21/20 24 01/22/2024 COMP. METAB OLIC PANEL (14) sodium 140 mmol/ L 134-14 4 Not Available [facility] ([facility]) [address] [place], [address], 01/22/2024 16:12:39 01/21/20 24 01/22/2024 COMP. METAB OLIC PANEL (14) potassium 4.1 mmol/ L 3.5-5. 2 Not Available [facility] ([facility]) [address] [facility], [place], [address], 01/22/2024 16:12:39 01/21/20 24 01/22/2024 COMP. METAB OLIC PANEL (14) chloride 102 mmol/ L 96-106 Not Available [facility] ([facility]) [address] [place], [address], 01/22/2024 16:12:39 01/21/20 24 01/22/2024 COMP. METAB OLIC PANEL (14) carbon dioxide, total 21 mmol/ L 20-29 Not Available [facility] ([facility]) [address] [place], [address], 01/22/2024 16:12:39 01/21/20 24 01/22/2024 COMP. METAB OLIC PANEL (14) calcium 10.1 mg/dL 8.7-10 .2 Not Available [facility] ([facility]) [address] [place], [address], 01/22/2024 16:12:39 01/21/20 24 01/22/2024 COMP. METAB OLIC PANEL (14) protein, total 8.0 g/dL 6.0-8. 5 Not Available [facility] ([facility]) [address] [place], [address], 01/22/2024 16:12:39 01/21/20 24 01/22/2024 COMP. METAB OLIC PANEL (14) albumin 4.7 g/dL 3.9-4. 9 Not Available [facility] ([facility]) [address] [place], [address], 01/22/2024 16:12:39 01/21/20 24 01/22/2024 COMP. METAB OLIC PANEL (14) globulin, total 3.3 g/dL 1.5-4. 5 Not Available [facility] ([facility]) [address] [place], [address], 01/22/2024 16:12:39 01/21/20 24 01/22/2024 COMP. METAB OLIC PANEL (14) A/G ratio 1.4 1.2-2. 2 Not Available [facility] ([facility]) [address] [place], [address], 01/22/2024 16:12:39 01/21/20 24 01/22/2024 COMP. METAB OLIC PANEL (14) bilirubin, total 0.7 mg/dL 0.0-1. 2 Not Available [facility] ([facility]) [address] [place], [address], 01/22/2024 16:12:39 01/21/20 24 01/22/2024 COMP. METAB OLIC PANEL (14) alkaline phosphatase 143 IU/L 44-121 above high normal Not Available [facility] ([facility]) [address] [place], [address], 01/22/2024 16:12:39 01/21/20 24 01/22/2024 COMP. METAB OLIC PANEL (14) AST (SGOT) 31 IU/L 0-40 Not Available [facility] ([facility]) [address] [facility], [place], [address], 01/22/2024 16:12:39 01/21/20 24 01/22/2024 COMP. METAB OLIC PANEL (14) ALT (SGPT) 44 IU/L 0-32 above high normal Not Available [facility] ([facility]) [address] [facility], [place], [address], 01/22/2024 16:12:39 01/21/20 24 01/22/2024 CBC, PLATE LET, NO DIFFE RENTI AL WBC 9.1 x10e3 /uL 3.4-10 .8 Not Available [facility] ([facility]) [address] [facility], [place], [address], 01/22/2024 16:12:40 01/21/20 24 01/22/2024 CBC, PLATE LET, NO DIFFE RENTI AL RBC 5.15 x10e6 /uL 3.77-5 .28 Not Available [facility] ([facility]) [address] [facility], [place], [address], 01/22/2024 16:12:40 01/21/20 24 01/22/2024 CBC, PLATE LET, NO DIFFE RENTI AL hemoglobin 15.3 g/dL 11.1-1 5.9 Not Available [facility] ([facility]) [address] [facility], [place], [address], 01/22/2024 16:12:40 01/21/20 24 01/22/2024 CBC, PLATE LET, NO DIFFE RENTI AL hematocrit 46.1 % 34.0-4 6.6 Not Available [facility] ([facility]) [address] [facility], [place], [address], 01/22/2024 16:12:40 01/21/20 24 01/22/2024 CBC, PLATE LET, NO DIFFE RENTI AL MCV 90 fL 79-97 Not Available [facility] ([facility]) [address] [facility], [place], [address], 01/22/2024 16:12:40 01/21/20 24 01/22/2024 CBC, PLATE LET, NO DIFFE RENTI AL MCH 29.7 pg 26.6-3 3.0 Not Available [facility] ([facility]) [address] [facility], [place], [address], 01/22/2024 16:12:40 01/21/20 24 01/22/2024 CBC, PLATE LET, NO DIFFE RENTI AL MCHC 33.2 g/dL 31.5-3 5.7 Not Available [facility] ([facility]) [address] [facility], [place], [address], 01/22/2024 16:12:40 01/21/20 24 01/22/2024 CBC, PLATE LET, NO DIFFE RENTI AL RDW 12.5 % 11.7-1 5.4 Not Available [facility] ([facility]) [address] [facility], [place], [address], 01/22/2024 16:12:40 01/21/20 24 01/22/2024 CBC, PLATE LET, NO DIFFE RENTI AL platelets 342 x10e3 /uL 150-45 0 Not Available [facility] ([facility]) [address] [facility], [place], [address], 01/22/2024 16:12:40 01/21/20 24 01/22/2024 CBC, PLATE LET, NO DIFFE RENTI AL NRBC FELLER SEAM OPERATOR Not Available [facility] ([facility]) [address] [facility], [place], [address], 01/22/2024 16:12:40 01/21/20 24 01/22/2024 PROTH ROMBI N TIME (PT), SERIA L INR 1.0 0.9-1. 2 Refer ence inter arpita is for non-a ntico agula lydia patie nts. Sugge sted INR thera peuti c range for Vitam in K antag onist thera py: Stand emily Dose (mode rate inten sity thera peuti c range ): 2.0 - 3.0 Highe r inten sity thera peuti c range 2.5 - 3.5 Not Available [facility] ([facility]) [address] [place], [address], 01/22/2024 16:12:41 01/21/20 24 01/22/2024 PROTH ROMBI N TIME (PT), SERIA L prothrombin time 10.2 sec 9.1-12 .0 Not Available [facility] ([facility]) [address] [place], [address], 01/22/2024 16:12:41 01/21/20 24 01/22/2024 PROTH ROMBI N TIME (PT), SERIA L pdf . Not Available [facility] ([facility]) [address] [place], [address], 01/22/2024 16:12:41 01/15/20 25 01/15/2025 COMP. METAB OLIC PANEL (14) glucose 259 mg/dL 70-99 above high normal Not Available [facility] ([facility]) [address] [place], [address], 01/22/2025 16:28:02 01/15/20 25 01/15/2025 COMP. METAB OLIC PANEL (14) BUN 14 mg/dL 6-20 normal Not Available [facility] ([facility]) [address] [place], [address], 01/22/2025 16:28:02 01/15/20 25 01/15/2025 COMP. METAB OLIC PANEL (14) creatinine 0.78 mg/dL 0.57-1 .00 normal Not Available [facility] ([facility]) [address] [place], [address], 01/22/2025 16:28:02 01/15/20 25 01/15/2025 COMP. METAB OLIC PANEL (14) eGFR 101 mL/mi n/1.7 3 >59 normal Not Available [facility] ([facility]) [address] [facility], [place], [address], 01/22/2025 16:28:02 01/15/20 25 01/15/2025 COMP. METAB OLIC PANEL (14) BUN/creatini ne ratio 18 9-23 normal Not Available [facility] ([facility]) [address] [facility], [place], [address], 01/22/2025 16:28:02 01/15/20 25 01/15/2025 COMP. METAB OLIC PANEL (14) sodium 137 mmol/ L 134-14 4 normal Not Available [facility] ([facility]) [address] [place], [address], 01/22/2025 16:28:02 01/15/20 25 01/15/2025 COMP. METAB OLIC PANEL (14) potassium 4.4 mmol/ L 3.5-5. 2 normal Not Available [facility] ([facility]) [address] [place], [address], 01/22/2025 16:28:02 01/15/20 25 01/15/2025 COMP. METAB OLIC PANEL (14) chloride 102 mmol/ L 96-106 normal Not Available [facility] ([facility]) [address] [place], [address], 01/22/2025 16:28:02 01/15/20 25 01/15/2025 COMP. METAB OLIC PANEL (14) carbon dioxide, total 22 mmol/ L 20-29 normal Not Available [facility] ([facility]) [address] [place], [address], 01/22/2025 16:28:02 01/15/20 25 01/15/2025 COMP. METAB OLIC PANEL (14) calcium 9.6 mg/dL 8.7-10 .2 normal Not Available [facility] ([facility]) [address] [place], [address], 01/22/2025 16:28:02 01/15/20 25 01/15/2025 COMP. METAB OLIC PANEL (14) protein, total 7.5 g/dL 6.0-8. 5 normal Not Available [facility] ([facility]) [address] [place], [address], 01/22/2025 16:28:02 01/15/20 25 01/15/2025 COMP. METAB OLIC PANEL (14) albumin 4.3 g/dL 3.9-4. 9 normal Not Available [facility] ([facility]) [address] [place], [address], 01/22/2025 16:28:02 01/15/20 25 01/15/2025 COMP. METAB OLIC PANEL (14) globulin, total 3.2 g/dL 1.5-4. 5 Not Available [facility] ([facility]) [address] [place], [address], 01/22/2025 16:28:02 01/15/20 25 01/15/2025 COMP. METAB OLIC PANEL (14) bilirubin, total 0.5 mg/dL 0.0-1. 2 normal Not Available [facility] ([facility]) [address] [place], [address], 01/22/2025 16:28:02 01/15/20 25 01/15/2025 COMP. METAB OLIC PANEL (14) alkaline phosphatase 152 IU/L 44-121 above high normal Not Available [facility] ([facility]) [address] [place], [address], 01/22/2025 16:28:02 01/15/20 25 01/15/2025 COMP. METAB OLIC PANEL (14) AST (SGOT) 81 IU/L 0-40 above high normal Not Available [facility] ([facility]) [address] [place], [address], 01/22/2025 16:28:02 01/15/20 25 01/15/2025 COMP. METAB OLIC PANEL (14) ALT (SGPT) 84 IU/L 0-32 above high normal Not Available [facility] ([facility]) [address] [facility], [place], [address], 01/22/2025 16:28:02 01/15/20 25 01/15/2025 CBC, PLATE LET, NO DIFFE RENTI AL WBC 10.0 x10e3 /uL 3.4-10 .8 normal Not Available [facility] ([facility]) [address] [facility], [place], [address], 01/22/2025 16:28:03 01/15/20 25 01/15/2025 CBC, PLATE LET, NO DIFFE RENTI AL RBC 5.11 x10e6 /uL 3.77-5 .28 normal Not Available [facility] ([facility]) [address] [place], [address], 01/22/2025 16:28:03 01/15/2001/15/2025 CBC, PLATE LET, NO DIFFE RENTI AL hemoglobin 15.0 g/dL 11.1-1 5.9 normal Not Available [facility] ([facility]) [address] [place], [address], 01/22/2025 16:28:03 01/15/2001/15/2025 CBC, PLATE LET, NO DIFFE RENTI AL hematocrit 46.1 % 34.0-4 6.6 normal Not Available [facility] ([facility]) [address] [place], [address], 01/22/2025 16:28:03 01/15/20 25 01/15/2025 CBC, PLATE LET, NO DIFFE RENTI AL MCV 90 fL 79-97 normal Not Available [facility] ([facility]) [address] [place], [address], 01/22/2025 16:28:03 01/15/20 25 01/15/2025 CBC, PLATE LET, NO DIFFE RENTI AL MCH 29.4 pg 26.6-3 3.0 normal Not Available [facility] ([facility]) [address] [facility], [place], [address], 01/22/2025 16:28:03 01/15/20 25 01/15/2025 CBC, PLATE LET, NO DIFFE RENTI AL MCHC 32.5 g/dL 31.5-3 5.7 normal Not Available [facility] ([facility]) [address] [facility], [place], [address], 01/22/2025 16:28:03 01/15/20 25 01/15/2025 CBC, PLATE LET, NO DIFFE RENTI AL RDW 12.0 % 11.7-1 5.4 Not Available [facility] ([facility]) [address] [place], [address], 01/22/2025 16:28:03 01/15/20 25 01/15/2025 CBC, PLATE LET, NO DIFFE RENTI AL platelets 358 x10e3 /uL 150-45 0 normal Not Available [facility] ([facility]) [address] [place], [address], 01/22/2025 16:28:03 01/15/20 25 01/15/2025 CBC, PLATE LET, NO DIFFE RENTI AL NRBC FELLER SEAM OPERATOR Not Available [facility] ([facility]) [address] [place], [address], 01/22/2025 16:28:03 01/15/20 25 01/20/2025 IBD EXPAN DED PANEL samir 34 units 0-50 Negat monse: <45 Equiv ocal: 45-50 Posit monse: >50 Not Available [facility] ([facility]) [address] [facility], [place], [address], 01/22/2025 16:28:04 01/15/20 25 01/20/2025 IBD EXPAN DED PANEL alca 47 units 0-60 Negat monse:< 55 Equiv ocal: 55-60 Posit monse: >60 Not Available [facility] ([facility]) [address] [facility], [place], [address], 01/22/2025 16:28:04 01/15/20 25 01/20/2025 IBD EXPAN DED PANEL amca 28 units 0-100 Negat monse: <90 Equiv ocal: 90-10 0 Posit monse: >100 This test was devel oped and its perfo rmanc e nicky cteri stics deter mined by [facility]. It has not been clear ed or appro surya by the Food and Drug Admin istra tion. The FDA has deter mined that such clear ance or appro arpita is not neces helga. Not Available [facility] ([facility]) [address] [facility], [place], [address], 01/22/2025 16:28:04 01/15/20 25 01/20/2025 IBD EXPAN DED PANEL atypical panca NEGATI VE negati ve Not Available [facility] ([facility]) [address] [facility], [place], [address], 01/22/2025 16:28:04 01/15/20 25 01/22/2025 IBD EXPAN DED PANEL acca 78 units 0-90 Negat monse: <80 Equiv ocal: 80-90 Posit monse: >90 Not Available [facility] ([facility]) [address] [facility], [place], [address], 01/22/2025 16:28:04 01/15/20 25 01/22/2025 IBD EXPAN DED PANEL comments ELICIA Canseco rn is not sugge stive of Infla mmato ry Bowel Disea se Not Available [facility] ([facility]) [address] [place], [address], 01/22/2025 16:28:04 01/15/20 25 01/15/2025 PROTH ROMBI N TIME (PT), SERIA L INR 1.0 0.9-1. 2 Refer ence inter arpita is for non-a ntico agula lydia patie nts. Sugge sted INR thera peuti c range for Vitam in K antag onist thera py: Stand emily Dose (mode rate inten sity thera peuti c range ): 2.0 - 3.0 Highe r inten sity thera peuti c range 2.5 - 3.5 Not Available [facility] ([facility]) [address] [facility], [place], [address], 01/22/2025 16:28:05 01/15/20 25 01/15/2025 PROTH ROMBI N TIME (PT), SERIA L prothrombin time 10.6 sec 9.1-12 .0 normal Not Available [facility] ([facility]) [address] [place], [address], 01/22/2025 16:28:05 01/15/20 25 01/15/2025 PROTH ROMBI N TIME (PT), SERIA L pdf . Not Available [facility] ([facility]) [address] [place], [address], 01/22/2025 16:28:05 01/15/20 25 01/18/2025 ENHAN BRITTANY LIVER FIBRO SIS (ELF) elf(tm) score 10.72 <9.80 above high normal ELF(T M) Score Inter preta tion: Risk cut-o ffs to asses s the likel ihood of progr essio n to cirrh osis and liver -rela lydia clini gagan event s withi n 3.9 years follo wing basel ine ELF score (IQR: 14.0- 22.4 month s)*: Lower risk < 9.80 Mid risk 9.80 - 11.29 Highe r risk >11.2 9 Note: The ELF(T M) Score is a unitl ess numer ical value . *Vazquez salazar SA, Amos VW, Casimiro fernandez T, et al. Gely serti b for patie nts with bridg ing fibro sis or compe nsate d cirrh osis due to FIGUEROA: Resul ts from [facility] phase III BRIDGETTE AR trial s. J Hepat ol. 2019;7 3(1): 26-39 . Not Available [facility] ([facility]) [address] [place], [address], 01/22/2025 16:28:06 01/15/20 25 01/15/2025 ESR-W ES+CR P sedimentatio n rate-westerg fidel 19 mm/HR 0-32 normal Not Available [facility] ([facility]) [address] [place], [address], 01/22/2025 16:28:06 01/15/20 25 01/15/2025 ESR-W ES+CR P C-reactive protein, quant 12 mg/L 0-10 above high normal Not Available [facility] ([facility]) [address] [place], [address], 01/22/2025 16:28:06 01/15/2001/14/2025 PLEAS E NOTE please note Commen t The date and/o r time of colle ction was not indic ated on the requi sitio n as requi red by state and carlo al law. The date of recei pt of the speci men was used as the colle ction date if not suppl ied. Not Available [facility] ([facility]) [address] [place], [address], 01/22/2025 16:28:07 Result Notes None recorded. Problems Name Problem SNOMED Code Status Onset Date Resolution Date Notes Provider Name and Address Organization Details Recorded Time Gastro-esopha geal reflux disease with esophagitis 974690046 Active [address], [place], [address] , [place] [facility] & [place] 5 09:48:34 Gastroesophag eal reflux disease without esophagitis 071153296 Active [address], [place], [address] , [place] [facility] & [place] 5 09:49:41 Laryngopharyn geal reflux 780902451 Active [address], [place], [address] , [place] [facility] & [place] 5 14:48:39 Feeling of lump in throat 859922177 Active [address], [place], [address] , [place] [facility] & [place] 5 14:49:03 Chronic diarrhea 556769173 Active [address], [place], [address] , [place] [facility] & [place] 5 14:49:26 Metabolic dysfunction-a ssociated steatohepatit is 738402660 Active [address], [place], [address] , [place] [facility] & [place] 3 09:01:14 Heartburn 44786031 Active [address], [place], [address] , [place] [facility] [facility] & [place] 3 09:01:14 Bile acid malabsorption syndrome 31200952 Active [address], [place], [address] , [facility] & [place] 3 14:37:11 Diarrhea 82599137 Active 2022 Buck Rivera PA-C [address], [place], [address] , [facility] & [place] 3 11:34:32 Irritable bowel syndrome with diarrhea 300964171 Active 2022 Buck Rivera PA-C [address], [place], [address] , [facility] & [place] 3 11:58:38 Problem Notes None recorded. Medical Equipment None Reported. Allergies No known drug allergies Medications Name Sig Start Date Stop Date Status Note LastModified by Organization Details LastModified Time promethazin e-DM 6.25 mg-15 mg/5 mL oral syrup TAKE 5 ML BY MOUTH EVERY 6 HOURS NEEDED FOR COUGH active Not Available Not Available No t Available loperamide 2 mg capsule take 1 TO 2 capsules BY MOUTH ONCE A DAY in THE morning NEEDED active Not Available Not Available No t Available benzonatate 200 mg capsule TAKE 1 CAPSULE BY MOUTH THREE TIMES DAILY NEEDED FOR COUGH FOR 5 DAYS active Not Available Not Available No t Available prednisone 20 mg tablet TAKE 2 TABLETS BY MOUTH ONCE DAILY FOR 5 DAYS 02/19 completed Not Available Not Available Not Available loperamide 2 mg tablet Take 1 to 2 tablets by mouth once daily in the morning as needed. 2024 active Not Available Not Available Not Avai lable metronidazo le 500 mg tablet TAKE 1 TABLET BY MOUTH THREE TIMES DAILY active Not Available Not Available No t Available benazepril 20 mg-hydrochl orothiazide 12.5 mg tablet TAKE 1 TABLET BY MOUTH TWICE DAILY active Not Available Not Available No t Available omeprazole 40 mg capsule,del ayed release TAKE 1 CAPSULE BY MOUTH TWICE DAILY active Not Available Not Available No t Available doxycycline monohydrate 100 mg tablet TAKE 1 TABLET BY MOUTH TWICE DAILY FOR 10 DAYS 08/15 completed Not Available Not Available Not Available meloxicam 7.5 mg tablet TAKE 1 TABLET BY MOUTH ONCE DAILY FOR 30 DAYS 04/26 completed Not Available Not Available Not Available famotidine 20 mg tablet Take 1 tablet twice a day by oral route as needed for 30 days, for heartburn . 2024 active Not Available Not Available Not Avai lable dicyclomine 20 mg tablet TAKE 1 TABLET BY MOUTH 4 TIMES DAILY active Not Available Not Available No t Available omeprazole 20 mg capsule,del ayed release Take 1 capsule every day by oral route. active Not Available Not Available No t Available hydroxyzine HCl 25 mg tablet TAKE 1 TABLET BY MOUTH THREE TIMES DAILY NEEDED FOR ANXIETY active Not Available Not Available No t Available colestipol 1 gram tablet TAKE TWO TABLETS BY MOUTH 2 TIMES A DAY active Not Available Not Available No t Available dicyclomine 10 mg capsule TAKE 1 CAPSULE BY MOUTH EVERY 6 HOURS NEEDED FOR PAIN 08/15 completed Not Available Not Available Not Available loratadine 10 mg tablet TAKE 1 TABLET BY MOUTH ONCE DAILY active Not Available Not Available No t Available Ventolin HFA 90 mcg/actuati on aerosol inhaler INHALE 2 PUFFS BY MOUTH 4 TIMES DAILY NEEDED FOR WHEEZING FOR 30 DAYS active Not Available Not Available No t Available escitalopra m 10 mg tablet TAKE 1 TABLET BY MOUTH ONCE DAILY active Not Available Not Available No t Available escitalopra m 20 mg tablet TAKE 1/2 (ONE-HALF ) TABLET BY MOUTH ONCE DAILY active Not Available Not Available No t Available cholestyram ine (with sugar) 4 gram oral powder Take 1 scoop twice a day by oral route for 30 days. active Not Available Not Available No t Available bupropion HCl XL 300 mg 24 hr tablet, extended release TAKE 1 TABLET BY MOUTH EVERY 24 HOURS active Not Available Not Available No t Available bupropion HCl XL 150 mg 24 hr tablet, extended release TAKE 1 TABLET BY MOUTH EVERY 24 HOURS FOR 30 DAYS active Not Available Not Available No t Available escitalopra m 5 mg tablet TAKE 1 TABLET BY MOUTH ONCE DAILY 08/15 completed Not Available Not Available Not Available peg 3350-electr olytes 236 gram-22.74 gram-6.74 gram-5.86 gram solution DRINK 2000 ML BY MOUTH EVERY DAY DIRECTED FOR 2 DAYS active Not Available Not Available No t Available levocetiriz ine 5 mg tablet TAKE 1 TABLET BY MOUTH IN THE EVENING active Not Available Not Available No t Available Xifaxan 550 mg tablet TAKE 1 TABLET BY MOUTH THREE TIMES DAILY FOR 14 DAYS 2023 active Not Available Not Available Not Avai lable Voquezna 20 mg tablet Take 1 tablet every day by oral route for 30 days. 2024 active Not Available Not Available Not Avai lable Voquezna 10 mg tablet active Not Available Not Available No t Available Vitals Date Recorded Body height Body mass index (BMI) Body weight Body temperature Oxygen saturation Oxygen saturation in Arterial blood by Pulse oximetry Heart rate Heart rate Systolic And Diastolic Provider Name and Address Organization Details Last Updated DateTime 4 170.18 cm 32.2 kg/m2 35633.6 7 g 98.4 [degF] 99 % 99 % 85 /min 83 /min 122/85 mm[Hg] Gurmeet Johnson [facility] & [place] 4 08:34:10 Date Recorded Body height Body mass index (BMI) Body weight Oxygen saturation Oxygen saturation in Arterial blood by Pulse oximetry Heart rate Body temperature Systolic And Diastolic Provider Name and Address Organization Details Last Updated DateTime 5 170.18 cm 35.3 kg/m2 827025. 72 g 98 % 98 % 93 /min 97.8 [degF] 157/103 mm[Hg] Vida Cruz [facility] & [place] 5 09:22:00 Date Recorded Body height Body mass index (BMI) Body weight Body temperature Oxygen saturation Oxygen saturation in Arterial blood by Pulse oximetry Heart rate Heart rate Systolic And Diastolic Provider Name and Address Organization Details Last Updated DateTime 4 170.18 cm 32.5 kg/m2 56747.7 8 g 97.9 [degF] 98 % 98 % 80 /min 73 /min 129/76 mm[Hg] Miesha Xiong [facility] & [place] 4 09:42:36 Date Recorded Body height Body mass index (BMI) Body weight Oxygen saturation Oxygen saturation in Arterial blood by Pulse oximetry Heart rate Heart rate Body temperature Systolic And Diastolic Provider Name and Address Organization Details Last Updated DateTime 5 170.18 cm 34.8 kg/m2 163314. 58 g 98 % 98 % 72 /min 93 /min 97.8 [degF] 159/95 mm[Hg] Miesha NARAYAN [facility] & [place] 5 10:10:55 Date Recorded Body height Body mass index (BMI) Body weight Body temperature Oxygen saturation Oxygen saturation in Arterial blood by Pulse oximetry Heart rate Systolic And Diastolic Provider Name and Address Organization Details Last Updated DateTime 5 170.18 cm 32.6 kg/m2 55790.6 5 g 97.7 [degF] 96 % 96 % 103 /min 152/104 mm[Hg] Vida NARAYAN [facility] & [place] 5 10:54:04 Social History Question Answer Notes LastModified by [employer] Details LastModified Time Tobacco Smoking Status Never Smoker Feli harrell, [facility] & [place] 02/19/2023 08:44:53 Do You Have An Advance Directive? No Information not available 02/19/2023 Are You Blind Or Do You Have Difficulty Seeing? No Information not available 02/19/2023 What Is Your Level Of Caffeine Consumption? None [email or web address] Information not available 08/15/2023 What Was The Date Of Your Most Recent Tobacco Screening? 07/15/2022 Information not available 02/19/2023 Are You Passively Exposed To Smoke? No Information not available 02/19/2023 How Much Tobacco Do You Smoke? No Information not available 02/19/2023 How Many Years Have You Smoked Tobacco? 0 Information not available 02/19/2023 Sex: Female Functional Status Question Answer Note LastModified by [employer] Details LastModified Time Do you use any illicit or recreational drugs? No Information not available 02/19/2023 What is your level of alcohol consumption? None Information not available 02/19/2023 Do you or have you ever used smokeless tobacco? Never used smokeless tobacco Information not available 02/19/2023 What is your exercise level? Occasional Information not available 02/19/2023 Mental Status Question Answer Note LastModified by Organization D etails LastModified Time Do you feel stressed (tense, restless, nervous, or anxious, or unable to sleep at night)? [id number] Information not available 02/19/2023 Family History Nothing Reported. Medical History Condition Response Hypertension Y Gynecological HistoryNo gynecological history recorded. Obstetrics History GPAL:G 0 P 0 0 0 0 Immunizations Vaccine Type Date Status Note Provider Nam e and Address Organization Details Recorded Time Hep A, adult 02/19/2023 completed Vida Anthony SYLVAIN harrell [facility] & [place] 04/04/2023 10:40:41 Hep A, adult 12/14/2023 completed Miesha Xiong [facility]IN [facility] [place] 12/14/2023 09:29:38 Past Encounters Encounter ID Performer Location Encounter Start Date Encounter Closed Date Diagnosis/Indication Diagnosis SNOMED-CT Code Diagnosis ICD10 Code Diagnosis Note [id number] Jimena Delgadillo NP [facility] [address] [address] 08/15/2022 10:42:15 08/15/2022 11:40:55 Metabolic dysfunction-associate d steatohepatitis 069347647 K75.81 - Labs today- Will check hepatitis panel today to confirm immunity to hepatitis A and B if not offer vaccines at next office visit. - Avoid NSAIDs and alcohol. - Do not take over 2 g of acetaminop hen daily. - Discussed weight loss and healthy diet. Heartburn 81623508 R12 - Omeprazole 20 mg once daily- Plan for EGD if no improvemen t- H Pylori ordered [id number] Jimena Delgadillo NP [facility] [address] [address] 08/22/2022 14:11:48 08/22/2022 14:24:38 Metabolic dysfunction-associate d steatohepatitis 228003720 K75.81 - Labs today- Will check hepatitis panel today to confirm immunity to hepatitis A and B if not offer vaccines at next office visit. - Avoid NSAIDs and alcohol. - Do not take over 2 g of acetaminop hen daily. - Discussed weight loss and healthy diet. Heartburn 85796270 R12 - Stop taking Omeprazole . Change to Famotodine - Plan for EGD if no improvemen t- H Pylori ordered [id number] Buck Rivera PA-C [facility] [address] [address] 02/19/2023 08:29:51 02/19/2023 09:13:45 Metabolic dysfunction-associate d steatohepatitis 388448538 K75.81 Heartburn 80286558 R12 Administra tion of viral vaccine 92083384 Z23 [id number] Buck Rivera PA-C [facility] [address] [address] 04/26/2023 13:50:20 04/26/2023 14:47:11 Metabolic dysfunction-associate d steatohepatitis 718451051 K75.81 Heartburn 77240332 R12 Bile acid malabsorption syndrome 74852994 E78.70 [id number] Buck Rivera PA-C [facility] [address] [address] 08/15/2023 10:48:54 08/15/2023 12:03:57 Metabolic dysfunction-associate d steatohepatitis 691375382 K75.81 Heartburn 48648052 R12 Diarrhea 17685687 R19.7 Irritable bowel syndrome with diarrhea 676401770 K58.0 [id number] Buck Rivera PA-C [facility] [address] [address] 12/14/2023 08:12:18 12/14/2023 09:31:53 Metabolic dysfunction-associate d steatohepatitis 982974374 K75.81 Heartburn 19840893 R12 Diarrhea 68832069 R19.7 Irritable bowel syndrome with diarrhea 299629000 K58.0 Administra tion of viral vaccine 46462212 Z23 Bile acid malabsorption syndrome 63161962 E78.70 [id number] Buck Rivera PA-C [facility] [address] [address] 01/21/2024 09:36:11 01/21/2024 10:45:15 Metabolic dysfunction-associate d steatohepatitis 592332479 K75.81 Heartburn 19221551 R12 Diarrhea 38570755 R19.7 Irritable bowel syndrome with diarrhea 195945008 K58.0 Administra tion of viral vaccine 62606208 Z23 Bile acid malabsorption syndrome 02167024 E78.70 [id number] Buck Rivera PA-C [facility] [address] [address] 01/14/2025 09:07:25 01/14/2025 10:26:10 Metabolic dysfunction-associate d steatohepatitis 060589394 K75.81 Diarrhea 08872277 R19.7 Irritable bowel syndrome with diarrhea 211994538 K58.0 Gastroesop hageal reflux disease without esophagitis 293538086 K21.9 [id number] Buck Rivera PA-C [facility] [address] [address] 02/06/2025 09:45:29 02/06/2025 11:33:31 Metabolic dysfunction-associate d steatohepatitis 680964518 K75.81 Gastroesop hageal reflux disease without esophagitis 417034507 K21.9 Heartburn 16695911 R12 Laryngopha ryngeal reflux 406257890 K21.9 Feeling of lump in throat 653578709 R09.A2 Chronic diarrhea 3553339 09 K52.9 [id number] Buck Rivera PA-C [facility] [address] [address] 04/01/2025 10:44:53 04/01/2025 12:08:17 Laryngopharyngeal reflux 848712937 K21.9 Feeling of lump in throat 284102066 R09.A2 Metabolic dysfunction-associate d steatohepatitis 728932933 K75.81 Chronic diarrhea 0788780 09 K52.9 Gastro-eso phageal reflux disease with esophagitis 319151864 K21.00 Health Concerns Section Related Observation LastModified by Organization Detai ls LastModified Time None Recorded Concern Status LastModified by Organization Details LastModified Time None Recorded Advance Directives Directive N: Payers Insurance Date Sequence Insurance Name Policy Number Policy Garcia Covered Member ID Garcia Member ID Guarantor Name 04/06/2025 1 [facility] (MEDICAID HMO) Ariadne Kang [id number] Ariadne Kang Notes Date Note Type Note Provider Name and Address Organization Details Recorded Time 12/14/2023 text/html PREVIOUS ( 3): Ms. Kang presents to the office today for follow-up for FIGUEROA and heartburn. She reports that her weight has been stable. She has not implemented any particular dietary changes. She reports being physically active daily. She has a history of intermittent heartburn that has been managed well with Pepcid as needed. She denies chest pain, dysphagia, or abdominal pian. US liver was ordered x2 previously, but she states she was never contacted to schedule the exam. She is without physical complaint at this time. Labs from her last OV in August showed total bilirubin elevated at 1.38, AST 62, and ALT 126. She has evidence of immunity against hepatitis B, but not against hepatitis A. PREVIOUS (04/26/23): Ms. Kang returns to the office today to discuss complaint of chronic diarrhea. She reports symptoms have been present intermittently for the past 4-5 years. She experiences fecal urgency and loose stools that is worse immediately following meals. She has a history of remote cholecystectomy at age 7. She denies feelings of constipation, straining, or difficult to pass stools. Additionally, she denies abdominal pain, bloating, melena, or hematochezia. PREVIOUS (08/15/23): Ms. Kang returns to the office today for follow-up regarding FIGUEROA and chronic diarrhea. Her weight is down 17 lbs over the past 6 months. She continues to complain of frequent diarrhea. Dicyclomine and Colestipol have not changed her symptoms. Diarrhea is worse following a meal. She has frequent abdominal pain that is improved after bowel movements. CURRENT (12/14/23): Ms. Kang returns to the office today for follow-up regarding FIGUEROA and chronic diarrhea. She had previously lost some weight which coorelated with improvement in LFT elevation. She has not lost further weight but has been able to maintain this. She continues to experience frequent post-prandial diarrhea. Xifaxan did not improve her symptoms. Buck Rivera PA-C [address], [place], [address], [place] [facility] [place] & [place] 12/14/2023 14:39:00 01/21/2024 text/html PREVIOUS ( 3): Ms. Kang presents to the office today for follow-up for FIGUEROA and heartburn. She reports that her weight has been stable. She has not implemented any particular dietary changes. She reports being physically active daily. She has a history of intermittent heartburn that has been managed well with Pepcid as needed. She denies chest pain, dysphagia, or abdominal pian. US liver was ordered x2 previously, but she states she was never contacted to schedule the exam. She is without physical complaint at this time. Labs from her last OV in August showed total bilirubin elevated at 1.38, AST 62, and ALT 126. She has evidence of immunity against hepatitis B, but not against hepatitis A. PREVIOUS (04/26/23): Ms. Kang returns to the office today to discuss complaint of chronic diarrhea. She reports symptoms have been present intermittently for the past 4-5 years. She experiences fecal urgency and loose stools that is worse immediately following meals. She has a history of remote cholecystectomy at age 7. She denies feelings of constipation, straining, or difficult to pass stools. Additionally, she denies abdominal pain, bloating, melena, or hematochezia. PREVIOUS (08/15/23): Ms. Kang returns to the office today for follow-up regarding FIGUEROA and chronic diarrhea. Her weight is down 17 lbs over the past 6 months. She continues to complain of frequent diarrhea. Dicyclomine and Colestipol have not changed her symptoms. Diarrhea is worse following a meal. She has frequent abdominal pain that is improved after bowel movements. PREVIOUS (12/14/23): Ms. Kang returns to the office today for follow-up regarding FIGUEROA and chronic diarrhea. She had previously lost some weight which coorelated with improvement in LFT elevation. She has not lost further weight but has been able to maintain this. She continues to experience frequent post-prandial diarrhea. Xifaxan did not improve her symptoms. Ms. Pang is a pleasant 33-year-old female who presents to the office today for procedure follow-up. She underwent EGD and colonoscopy by Dr. Mcdonald recently with findings of grade B esophagitis, erosive gastritis, and cobblestoning in the colon with external hemorrhoids on rectal exam. She was started on omeprazole 40 mg p.o. b.i.d. following the procedure. Gastric, duodenal, and random colon biopsies were performed and were unremarkable. Currently, she is feeling well overall at this time. Her diarrhea has started to resolved. Cholestyramine was previously prescribed but she is not taking this currently. Buck Rivera PA-C [address], [place], [address], [facility] 01/21/2024 12:24:25 01/14/2025 text/html Ms. Kang is a pleasant 34-year-old female with history of GERD with esophagitis, FIGUEROA, and chronic diarrhea who presents to the office today for 1 year follow-up. She had EGD and colonoscopy by Dr. Mcdonald last year with finding of grade B reflux esophagitis and cobblestoning in the colon (Biopsies were negative). She has continued to experience 4-5 urgent loose stools daily, worse in the mornings. She has failed multiple prior treatments including Xifaxan, cholestyramine, and colestipol. She is currently taking dicyclomine 3 times daily but does not feel it is helping much. She denies incontinence of feces or leakage of stool. She experiences intermittent mid abdominal pain and bloating that is sometimes alleviated following a BM. She feels that everything she eats causes upset stomach. She experiences frequent breakthrough heartburn, typically twice daily despite using Omeprazole twice daily. She denies early satiety. Buck Rivera PA-C [address], [place], [address], [facility] 01/14/2025 10:21:47 02/06/2025 text/html PREVIOUS ( 5): Ms. Kang is a pleasant 34-year-old female with history of GERD with esophagitis, FIGUEROA, and chronic diarrhea who presents to the office today for 1 year follow-up. She had EGD and colonoscopy by Dr. Mcdonald last year with finding of grade B reflux esophagitis and cobblestoning in the colon (Biopsies were negative). She has continued to experience 4-5 urgent loose stools daily, worse in the mornings. She has failed multiple prior treatments including Xifaxan, cholestyramine, and colestipol. She is currently taking dicyclomine 3 times daily but does not feel it is helping much. She denies incontinence of feces or leakage of stool. She experiences intermittent mid abdominal pain and bloating that is sometimes alleviated following a BM. She feels that everything she eats causes upset stomach. She experiences frequent breakthrough heartburn, typically twice daily despite using Omeprazole twice daily. She denies early satiety. CURRENT (02/06/25): Ms. Kang returns to the office today for follow-up regarding multiple issues. Her primary complaint is refractory heartburn and overt regurgitation. She is experiencing hoarse voice and globus sensation. She has not yet obtained the Voqeuzna from the mail order pharmacy, but she states that the samples were not any more helpful than the PPI.Regarding recent diarrhea, stool studies were unremarkable including PCR, fecal elastase, fecal fat, O & P, fecal calprotectin, and H. pylori stool antigen. Her symptoms are improved with addition of loperamide 1 tablet daily. This has caused her mild constipation, however.Regarding MASH, her LFTs remain elevated. ELF test was moderate risk. She has had a 3 lb weight loss over the past month and she is working to be more physically active. Buck Rivera PA-C [address] [facility], [place], [address], [place] [facility] - [place] & [place] 02/06/2025 14:50:02 04/01/2025 text/html PREVIOUS (02/06/25 ): Ms. Kang returns to the office today for follow-up regarding multiple issues. Her primary complaint is refractory heartburn and overt regurgitation. She is experiencing hoarse voice and globus sensation. She has not yet obtained the voquezna from the mail order pharmacy, but she states that the samples were not any more helpful than the PPI.Regarding recent diarrhea, stool studies were unremarkable including PCR, fecal elastase, fecal fat, O & P, fecal calprotectin, and H. pylori stool antigen. Her symptoms are improved with addition of loperamide 1 tablet daily. This has caused her mild constipation, however.Regarding MASH, her LFTs remain elevated. ELF test was moderate risk. She has had a 3 lb weight loss over the past month and she is working to be more physically active. CURRENT (04/01/25): Ms. Kang returns to the office today for procedure follow-up. She underwent EGD with Alexandra probe placement on 03/02/2525. Grade B reflux esophagitis was noted. No hiatal hernia was mentioned. Pathology showed non-specific reactive changes in the stomach and at the GE junction. Her Alexandra study showed an abnormal DeMeester score with increased acid exposure time and longest reflux. She has been unable to obtain the Voquezna from the specialty pharmacy. She continues to experience bothersome regurgitation, heartburn, and vocal hoarseness. Her diarrhea is currently stable. She has experienced a 14 lb weight loss over the past couple of months that she contributes to her upper GI symptoms. Buck Rivera PA-C [address], [place], [address], [facility] [place] 04/01/2025 17:01:36 OBGyn Episode No OBEpisode recorded.
[2025-04-08] MEDS: BARIUM SULFATE(LIQUID E-Z-PAQUE);355ML BOTTLE 355 ML PO (08:19)
[2025-04-08] MEDS: E-Z-GASII EFFERVESCENT GRANULES;1PK 1 EACH PO (08:19)
[2025-04-08] MEDS: BARIUM SULFATE (E-Z-HD 340GM);135ML BOTTLE 135 ML PO (08:19)
== END 2025-04-08 23:59 | disposition home or self-care (01) ==
LOC: RAD 07:46
PROVIDERS: PCP Nurse Practitioner Family; Visit Provider Physician Assistant
DX: K44.9 Diaphragmatic hernia without obstruction or gangrene (principal); K21.00 Gastro-esophageal reflux disease with esophagitis, without bleeding
CPT/HCPCS: 74220

== ENCOUNTER 2025-04-30 13:22 | Outpatient (CLI) | payer MEDICAID, SELFPAY ==
--- OUTSIDE RECORDS SUMMARY | 2025-04-30 13:27 | XMS_ITS | Patient Health Record ---
Author Organization [facility] Address [address] [facility] [address] [place] [address] Care Team Providers Care Job Coach Name Role Phone Blaire Hill Unavailable [phone] Reason For Referral No Information Social History Social History Sexual History: Social Info Question Answer Notes Sexual History Had sex in the past 12 months (vaginal, oral, or anal)? Yes Drugs/Alcohol: Social Info Question Answer Notes Drugs Have you used drugs other than those for medical reasons in the past 12 months? No Alcohol Screen Did you have a drink containing alcohol in the past year? Yes Points 0 Interpretation Negative Tobacco Use: Social Info Question Answer Notes Tobacco Use/Smoking Are you a former smoker Tobacco use other than smoking: Are you an other tobac co user? No Plan Of Treatment No Information
== END 2025-04-30 23:59 | disposition home or self-care (01) ==
LOC: DIETICIAN 13:22
PROVIDERS: PCP Nurse Practitioner Family; Visit Provider Nurse Practitioner Family
DX: E11.9 Type 2 diabetes mellitus without complications (principal)
CPT/HCPCS: 97802